=== PATIENT | female | born 1970 | race Caucasian/White ===

== ENCOUNTER → 2020-01-26 | Outpatient (CLI) | payer BC ==
--- NOTE | 2020-01-26 13:07 | Diagnostic Imaging Report ---
EXAMINATION: HIP RIGHT 2-3 VW (+/- PELVIS) INDICATION: Hip osteoarthritis COMPARISON: None FINDINGS: AP and frog-leg views of the right hip demonstrate no acute fracture or dislocation. Alignment is anatomic. Mild degenerative changes of the right hip joint with small osteophyte formation. The soft tissues appear unremarkable. IMPRESSION: Mild right hip degenerative changes. No acute osseous injury. Signed by: Shirlene Elam MD on 01/26/2020 1:04 PM
== END ==
LOC: RAD 12:31
PROVIDERS: ATTEND Internal Medicine
DX: M16.11 Unilateral primary osteoarthritis, right hip (principal)

== ENCOUNTER 2020-12-16 16:17 | Emergency (ER) | payer SELFPAY ==
[~2020-12-16] VITALS: Ht 170.2 cm; Wt 136.1 kg
[2020-12-16] MEDS ORDERED: CASIRIVIMAB/IMDEVIMAB 10 ML in SODIUM CHLORIDE 0.9% 100 ML IV ONE (16:30)
[2020-12-16 18:32] VITALS: BP 133/88
== END 2020-12-16 18:34 | disposition home or self-care (01) ==
LOC: ER 16:26
DX: U07.1 COVID-19 (principal)
CPT/HCPCS: 99283; J7050